=== PATIENT | male | born 1945 | race Caucasian/White ===

== ENCOUNTER → 2017-07-27 | Outpatient (CLI) | payer OTHER, MEDICARE ==
[~2017-07-27] MED LIST: ACTOS30 MG PO; GLUCOPHAGE1000 MG PO; ZOCOR40 MG PO
== END | disposition home or self-care (01) ==
LOC: RES 10:25
DX: R06.02 Shortness of breath (principal)
CPT/HCPCS: 94060; 94726; 94729